=== PATIENT | female | born 1970 | race Caucasian/White ===

== ENCOUNTER 2018-03-22 06:32 | Day surgery (SDC) | payer OTHER ==
[2018-03-22] MEDS ORDERED: SOD CHLORIDE 0.9% 1,000 ML IV (07:00)
[2018-03-22] MEDS ORDERED: CEFAZOLIN 1 GM/50 ML (PMX) 50 ML IVPB (07:00)
[2018-03-22 07:40] LABS: ADD MAN DIFF? NO
[2018-03-22 07:42] LABS: BASOPHIL # 0.1 10^3/ul (0.0-0.1); BASOPHILS % 0.6 % (0.0-2.0); EOSINOPHILS # 0.9 10^3/ul (0.0-0.5); EOSINOPHILS % 8.8 % (0.0-7.0); HEMATOCRIT 38.9 % (37.0-47.0); HEMOGLOBIN 12.9 g/dl (12.0-16.0); LYMPHOCYTES % 41.7 % (15.0-51.0); MEAN CORPUSCULAR HEMOGLOBIN 29.5 pg (29.0-33.0); MEAN CORPUSCULAR HGB CONC 33.2 g/dl (32.0-37.0); MEAN CORPUSCULAR VOLUME 88.8 fl (82.0-101.0); MEAN PLATELET VOLUME 9.5 fl (7.4-10.4); MONOCYTE # 0.7 10^3/ul (0.3-0.9); MONOCYTES % 7.3 % (0.0-11.0); NEUTROPHILS % 41.3 % (39.0-77.0); PLATELET COUNT 338 10^3/UL (140-415); RED BLOOD COUNT 4.38 10^6/ul (4.20-5.40); RED CELL DISTRIBUTION WIDTH 13.9 % (11.5-14.5)
[2018-03-22 07:42] LABS: WHITE BLOOD COUNT 9.6 10^3/ul (4.8-10.8)
[2018-03-22 08:04] LABS: ANION GAP 12 (5-13); BLOOD UREA NITROGEN 16 mg/dl (7-20); CALCIUM 9.2 mg/dl (8.4-10.2); CARBON DIOXIDE 23 mmol/L (21-31); CHLORIDE 105 mmol/L (97-110); Estimated GFR > 60 mL/min (>60); GLUCOSE 99 mg/dl (70-220); POTASSIUM 3.7 mmol/L (3.5-5.1); SODIUM 140 mmol/L (135-144)
[2018-03-22 08:24] LABS: INR 0.91; PROTIME 12.4 Sec (11.9-14.9)
[2018-03-22 08:25] LABS: PARTIAL THROMBOPLASTIN TIME 33.1 Sec (23.0-35.0)
[2018-03-22] MEDS ORDERED: LIDOCAINE 2% (SDV) 5 ML INJ (10:13)
[2018-03-22] MEDS ORDERED: MIDAZOLAM 1 MG/ML 2 ML INJ (10:13)
[2018-03-22] MEDS ORDERED: FENTAnyl 50 MCG/ML VIAL (10:13)
[2018-03-22] MEDS ORDERED: PROPOFOL 20 ML ×2 (10:13→10:40)
[2018-03-22] MEDS ORDERED: ONDANSETRON 4 MG INJ (10:24)
[2018-03-22] MEDS ORDERED: FAMOTIDINE 20 MG INJ (10:24)
[2018-03-22] MEDS ORDERED: CEFAZOLIN 1 GM INJ (10:24)
[2018-03-22] MEDS ORDERED: DEXAMETHASONE 4 MG/ML 5 ML INJ (10:24)
[2018-03-22] MEDS ORDERED: ONDANSETRON 4 MG INJ IV (10:30)
[2018-03-22] MEDS ORDERED: HYDROmorphONE 1 MG/5 ML IV SYRINGE IV ×3 (10:30)
[2018-03-22] MEDS ORDERED: FENTAnyl 50 MCG/ML VIAL IV ×3 (10:30)
[2018-03-22] MEDS ORDERED: PROCHLORPERAZINE 10 MG INJ IV (10:30)
[2018-03-22] MEDS ORDERED: DIPHENHYDRAMINE 50 MG INJ IV (10:30)
[2018-03-22] MEDS ORDERED: OXYCODONE/ACETAMINOPHEN (5/325) TAB PO ×3 (10:30→11:30)
[2018-03-22] MEDS ORDERED: MEPERIDINE 25 MG INJ IV (10:30)
[2018-03-22] MEDS ORDERED: HYDROmorphONE 2 MG/ML SYG (10:44)
[2018-03-22] MEDS ORDERED: EPHEDrine SULFATE 50 MG/5 ML SYG (11:00)
== END 2018-03-22 14:00 | disposition home or self-care (01) ==
LOC: SDS 06:32
DX: D24.2 Benign neoplasm of left breast (principal); I10 Essential (primary) hypertension; K21.9 Gastro-esophageal reflux disease without esophagitis; F41.9 Anxiety disorder, unspecified
CPT/HCPCS: 19301; 80048; 85025; 85610; 85730; 88307

== ENCOUNTER 2018-05-15 06:24 | Day surgery (SDC) | payer OTHER ==
[2018-05-15] MEDS ORDERED: CEFAZOLIN 1 GM/50 ML (PMX) 50 ML IVPB (07:00)
[2018-05-15] MEDS ORDERED: SOD CHLORIDE 0.9% 1,000 ML IV (07:00)
[2018-05-15 07:39] LABS: ADD MAN DIFF? NO
[2018-05-15 07:41] LABS: WHITE BLOOD COUNT 9.4 10^3/ul (4.8-10.8)
[2018-05-15 07:41] LABS: BASOPHIL # 0.1 10^3/ul (0.0-0.1); BASOPHILS % 0.7 % (0.0-2.0); EOSINOPHILS % 10.9 % (0.0-7.0); HEMATOCRIT 39.2 % (37.0-47.0); HEMOGLOBIN 12.9 g/dl (12.0-16.0); LYMPHOCYTES # 3.9 10^3/ul (0.8-2.9); LYMPHOCYTES % 41.9 % (15.0-51.0); MEAN CORPUSCULAR HEMOGLOBIN 29.6 pg (29.0-33.0); MEAN CORPUSCULAR HGB CONC 32.9 g/dl (32.0-37.0); MEAN CORPUSCULAR VOLUME 89.9 fl (82.0-101.0); MEAN PLATELET VOLUME 10.2 fl (7.4-10.4); MONOCYTE # 0.8 10^3/ul (0.3-0.9); NEUTROPHIL # 3.6 10^3/ul (1.6-7.5); NEUTROPHILS % 38.1 % (39.0-77.0); PLATELET COUNT 340 10^3/UL (140-415); RED BLOOD COUNT 4.36 10^6/ul (4.20-5.40); RED CELL DISTRIBUTION WIDTH 14.3 % (11.5-14.5)
[2018-05-15 07:59] LABS: ANION GAP 11 (5-13); BLOOD UREA NITROGEN 11 mg/dl (7-20); CALCIUM 9.2 mg/dl (8.4-10.2); CARBON DIOXIDE 27 mmol/L (21-31); CHLORIDE 104 mmol/L (97-110); Estimated GFR > 60 mL/min (>60); GLUCOSE 95 mg/dl (70-220); POTASSIUM 3.8 mmol/L (3.5-5.1); SODIUM 142 mmol/L (135-144)
[2018-05-15 08:01] LABS: CREATININE 0.29 mg/dl (0.44-1.00); INR 0.88; PT RATIO 0.9
[2018-05-15 08:02] LABS: PARTIAL THROMBOPLASTIN TIME 32.2 Sec (23.0-35.0)
[2018-05-15] MEDS ORDERED: MIDAZOLAM 1 MG/ML 2 ML INJ (09:20)
[2018-05-15] MEDS ORDERED: ONDANSETRON 4 MG INJ (10:36)
[2018-05-15] MEDS ORDERED: PROPOFOL 20 ML (10:43)
[2018-05-15] MEDS ORDERED: LIDOCAINE 2% (SDV) 5 ML INJ (10:43)
[2018-05-15] MEDS ORDERED: CEFAZOLIN 1 GM INJ (10:44)
[2018-05-15] MEDS ORDERED: MEPERIDINE 25 MG INJ (10:52)
[2018-05-15] MEDS ORDERED: LACTATED RINGER'S 1,000 ML IV (10:58)
[2018-05-15] MEDS ORDERED: MEPERIDINE 25 MG INJ IV (11:00)
[2018-05-15] MEDS ORDERED: HYDROCODONE/APAP (5/325) TAB PO (11:00)
[2018-05-15] MEDS ORDERED: HYDROmorphONE 1 MG/5 ML IV SYRINGE IV (11:00)
[2018-05-15] MEDS ORDERED: FENTAnyl 50 MCG/ML VIAL IV (11:00)
[2018-05-15] MEDS ORDERED: DIPHENHYDRAMINE 50 MG INJ IV (11:00)
[2018-05-15] MEDS: HYDROmorphONE 1 MG/5 ML IV SYRINGE IV ×2 (11:09→11:28)
[2018-05-15] MEDS: ONDANSETRON 4 MG INJ IV (11:14)
[2018-05-15] MEDS: HYDROCODONE/APAP (5/325) TAB PO (12:39)
== END 2018-05-15 13:39 | disposition home or self-care (01) ==
LOC: SDS 06:24
DX: N60.32 Fibrosclerosis of left breast (principal); L90.5 Scar conditions and fibrosis of skin; I10 Essential (primary) hypertension; E78.5 Hyperlipidemia, unspecified
CPT/HCPCS: 19301; 80048; 82962; 85025; 85610; 85730; 88307